=== PATIENT | male | born 1960 | race Caucasian/White ===

== ENCOUNTER 2019-09-15 14:34 | Emergency (ER) | payer MEDICAID, OTHER ==
[~2019-09-15] VITALS: Ht 182.9 cm; Wt 90.7 kg
[~2019-09-15 14:34] MED LIST: GABA300C10 PO; HYDR25TA4 PO; LIS20T PO; OMEP20CA74 OR
[2019-09-15] MEDS ORDERED: SODIUM CHLORIDE 0.9% 1,000 ML IV ONE ×2 (14:46)
[2019-09-15] MEDS ORDERED: LABETALOL HCL 5 MG/ML 4ML SYRINGE IV ONE (15:00)
[2019-09-15 15:04] LABS: Eosinophils # (auto) 0 10 ^3/uL (0-0.8); Lymphocytes # (auto) 0.9 10 ^3/uL (0.4-5.4); Monocytes # (auto) 0.5 10 ^3/uL (0-1.3)
[2019-09-15 15:22] LABS: Eosinophils % (auto) 0.1 % (0.0-7.0); Nucleated Red Blood Cells % 0.3 %
[2019-09-15 15:28] LABS: Basophils # (auto) 0.1 10 ^3/uL (0-0.2); Basophils % (auto) 0.6 % (0.0-2.0); Lymphocytes % (auto) 10.7 % (10.0-50.0); Monocytes % (auto) 6.5 % (0.0-12.0); Neutrophils # (auto) 6.9 10 ^3/uL (1.6-8.6); Neutrophils % (auto) 82.1 % (37.0-80.0); White Blood Cell 8.4 10^3/uL (4.4-10.8)
[2019-09-15 15:29] LABS: Hematocrit 59.1 % (41.0-53.0); Hemoglobin 20.4 g/dL (13.5-17.5); Mean Corpuscular Hemoglobin 33.9 pg (28.0-32.0); Mean Corpuscular Hgb Conc. 34.5 g/dL (32.0-36.0); Mean Corpuscular Volume 98.3 fL (80.0-100.0); Platelet Count (auto) 190 10^3/uL (140-450); Red Blood Cells 6.01 10^6/uL (4.5-5.90); Red Cell Distribution Width 15.8 % (11.8-14.3)
[2019-09-15 15:35] LABS: Alanine Aminotransferase 33 U/L (16-61); Albumin 3.6 g/dL (3.4-5.0); Anion Gap 10 (5-15); Aspartate Aminotransferase 41 U/L (15-37); BUN/Creatinine Ratio 9.6; Blood Urea Nitrogen 7 mg/dL (7-18); Calcium 8.7 mg/dL (8.5-10.1); Carbon Dioxide 28 mmol/L (21-32); Chloride 101 mmol/L (98-107); GFR African American 140 mL/min; GFR Non-African American 116 mL/min; Glucose 109 mg/dL (74-106); Potassium 3.3 mmol/L (3.5-5.1); Sodium 139 mmol/L (136-145)
[2019-09-15 15:39] LABS: Alkaline Phosphatase 128 U/L (45-117); Bilirubin, Total 1.4 mg/dL (0.2-1.0); Total Protein 7.9 g/dL (6.4-8.2)
[2019-09-15] MEDS ORDERED: POTASSIUM EFFERVESENT TAB 25 MEQ PO ONE (17:15)
[2019-09-15] MEDS ORDERED: hydrALAZINE HCL 20 MG/ML VL IV ONE ×2 (18:00→18:30)
[2019-09-15 18:30] VITALS: BP 171/102
== END 2019-09-15 19:37 | disposition home or self-care (01) ==
LOC: ER 14:34 → EDBD 14:34 → ER 19:37
DX: T14.8XXA Other injury of unspecified body region, initial encounter (principal); I10 Essential (primary) hypertension; E86.0 Dehydration; K52.9 Noninfective gastroenteritis and colitis, unspecified; E87.6 Hypokalemia; W17.89XA Other fall from one level to another, initial encounter; Y93.89 Activity, other specified; Y92.89 Other specified places as the place of occurrence of the external cause; Y99.8 Other external cause status
CPT/HCPCS: 36415; 70450; 71250; 72100; 73030; 74176; 80053; 84484; 85025; 96361; 96365; 96375; 99285; J0360; J3490